=== PATIENT | female | born 1980 | race Caucasian/White ===

== ENCOUNTER 2019-03-08 14:51 | Emergency (ER) | payer OTHER ==
[2019-03-08 15:04] VITALS: BP 127/83
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
== END 2019-03-08 16:15 | disposition home or self-care (01) ==
LOC: UCEAST 14:51
DX: S16.1XXA Strain of muscle, fascia and tendon at neck level, initial encounter (principal); V43.52XA Car driver injured in collision with other type car in traffic accident, initial encounter; Y92.410 Unspecified street and highway as the place of occurrence of the external cause; M25.511 Pain in right shoulder; M50.323 Other cervical disc degeneration at C6-C7 level; E03.9 Hypothyroidism, unspecified; Z88.1 Allergy status to other antibiotic agents; Z88.0 Allergy status to penicillin; Z88.2 Allergy status to sulfonamides; Z91.030 Bee allergy status; F17.210 Nicotine dependence, cigarettes, uncomplicated
CPT/HCPCS: 72125; 99212; G0463

== ENCOUNTER → 2019-03-31 01:03 | Emergency (ER) | payer OTHER ==
[~2019-03-31 01:03] MED LIST: Ibuprofen TAB* 400 MG PO ONE
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
[2019-03-31 02:53] VITALS: BP 119/79
== END | disposition home or self-care (01) ==
LOC: ED 01:03
DX: S30.0XXA Contusion of lower back and pelvis, initial encounter (principal); Y04.8XXA Assault by other bodily force, initial encounter; Y92.009 Unspecified place in unspecified non-institutional (private) residence as the place of occurrence of the external cause; Z88.0 Allergy status to penicillin; Z88.2 Allergy status to sulfonamides; F32.9 Major depressive disorder, single episode, unspecified; F41.9 Anxiety disorder, unspecified; F17.210 Nicotine dependence, cigarettes, uncomplicated
CPT/HCPCS: 72220; 99282; A9270-GY

== ENCOUNTER 2019-07-27 08:52 | Emergency (ER) | payer OTHER ==
--- OUTSIDE RECORDS SUMMARY | 2019-07-27 09:08 | XMS REPORT | Summary of Care ---
:1980 Author Organization [facility] Address [address] [address] Care Team Providers Name Role Phone Lalit Hodges MD Primary Care Provider Reason for Visit Reason Comments Low Back Pain Encounter Details Date Type Department Care Team Description 06/09/2019 Office Visit [facility] - Meghann Maguire, PT Dorsalgia (Primary [facility] [address] Dx) Therapy [address] [place] [address] [address] [phone] [phone] Allergies Active Allergy Reactions Severity Noted Date Comments Bee Anaphylaxis High 10/20/2017 Venlafaxine Other 03/16/2018 Not like Penicillins Anaphylaxis High 10/20/2017 Ceftriaxone Anaphylaxis High 10/20/2017 Sulfa Antibiotics Anaphylaxis High 10/20/2017 documented as of this encounter (statuses as of 06/09/2019) Medications Medication Sig Dispensed Refills Start Date End Date Status Omeprazole Magnesium 20 Take 1 Tab by 0 Active MG Oral Tab EC mouth DAILY. VALacyclovir 1 g Oral Take 2 Tabs by 4 Tab 2 02/28/2019 Active Tab mouth TWICE DAILY. X 1 day naproxen sodium Take 1 Tab by 60 Tab 0 03/04/2019 Active (ANAPROX DS) 550 MG mouth TWO TIMES Oral Tab DAILY WITH MEALS. buPROPion (WELLBUTRIN Take 1 Tab by 60 Tab 2 03/04/2019 Active SR) 150 MG Oral TABLET mouth TWICE SR 12 HR DAILY. nicotine transdermal Place 1 Patch 30 Patch 0 03/04/2019 Active patch-daily (NICODERM) onto skin DAILY. 21 MG/24HR Transdermal PATCH 24 HR diclofenac (VOLTAREN) 1 2 g by Topical 1 Tube 1 03/07/2019 Active % Transdermal Gel route EVERY EIGHT HOURS. Cyclobenzaprine HCl Take 10 mg by 0 Active (FLEXERIL PO) mouth THREE TIMES DAILY NEEDED. gabapentin (NEURONTIN) Take 1 Cap by 90 Cap 0 03/23/2019 Active 300 MG Oral Cap mouth THREE TIMES DAILY. EPINEPHrine 0.3 1 Each by 1 Each 1 03/30/2019 Active MG/0.3ML Injection Injection route Solution Auto-injector NEEDED (anaphlaxis). levothyroxine Take 1 Tab by 30 Tab 5 04/18/2019 Active (SYNTHROID) 75 MCG Oral mouth BEFORE Tab BREAKFAST. documented as of this encounter (statuses as of 06/09/2019) Active Problems Problem Noted Date Tobacco user 12/17/2017 Thyroid nodule Anxiety and depression documented as of this encounter (statuses as of 06/09/2019) Resolved Problems Problem Noted Date Resolved Date Other general symptoms(780.99) 02/01/2006 10/20/2017 documented as of this encounter (statuses as of 06/09/2019) Social History Tobacco Use Types Packs/Day Years Used Date Current Every Day Smoker Cigarettes 0.5 20 Smokeless Tobacco: Never Used Comments: currently weaning from 1 ppd to 0.5 ppd Alcohol Use Drinks/Week oz/Week Comments Yes 3 Cans of beer 3.0 Sex Assigned at Date Recorded Not on file Job Start Date Occupation Industry Not on file Not on file Not on file Travel History Travel Start Travel End No recent travel history available. documented as of this encounter Last Filed Vital Signs Not on filedocumented in this encounter Progress Notes Meghann Maguire, PT - 06/09/2019 11:00 AM EDT [facility] Outpatient Physical Therapy [facility] [address] [place] [id number] Treatment Number: 8 Referring Physician: Lalit Hodges Primary Diagnosis: ICD-9-CM ICD-10-CM 1. Dorsalgia 724.5 M54.9 Time In: 1100 Time Out: 1130 Total Session Minutes: 30 Pain at Start of Care: 7/10 Pain at End of Care: 6/10 Subjective Comments: Low back pain is the worst today. Still has pain everyday. Neck may be a little better but low back is not. Denies pain/numbness/ tingling in the legs today. If squats or bends over gets a little tingling in the legs. Sometimes bends to touch the feet to stretch and cannot returnback to neutral/standing. Heat makes everything feel worse. Unable to lift her 5 year old child intothe car. Has to take tylenol or a muscle relaxer after. Interventions: Therapeutic Exercises (92091) Number of Exercises?: 14 Total Minutes (all Therapeutic Exercise): 30 Exercise #1 Exercise Name: Bird dog Reason for Exercise: Strengthening Location/Body Area: Lumbar Spine Sets/Reps: 10 Exercise #2 Exercise Name: vazquez pose Reason for Exercise: Flexibility Location/Body Area: Lumbar Spine Sets/Reps: 5 Exercise #3 Exercise Name: prone I Reason for Exercise: Strengthening Location/Body Area: Shoulder Sets/Reps: 10 Exercise #4 Exercise Name: cervical retraction Reason for Exercise: Strengthening Location/Body Area: Cervical Spine Sets/Reps: 10 Exercise #5 Exercise Name: supine spinal rotaiton Reason for Exercise: Joint Mobility Location/Body Area: Cervical Spine;Lumbar Spine Sets/Reps: 8 Exercise #6 Exercise Name: Piriformis stretch Reason for Exercise: Flexibility Location/Body Area: Lumbar Spine Sets/Reps: 3x30 seconds Exercise #8 Exercise Name: Cat and camel Reason for Exercise: Joint Mobility Location/Body Area: Lumbar Spine;Thoracic Spine Sets/Reps: 8 Exercise #9 Exercise Name: Prone on elbows Reason for Exercise: Joint Mobility Location/Body Area: Lumbar Spine Sets/Reps: 2x30 seconds Exercise #10 Exercise Name: Bridge Reason for Exercise: Strengthening Location/Body Area: Lumbar Spine Sets/Reps: 10x5 seconds Exercise #11 Exercise Name: hip flexor stretch Reason for Exercise: Flexibility Location/Body Area: Lumbar Spine Sets/Reps: 3x30 seconds trigger points in paraspinals along the whole spine Negative SLR today Hypomobility in lumbar and thoracic spine Assessment: Patient demonstrates lumbar and thoracic hypomobility. Decreased spinal flexion noted which is partially related to paraspinal tightness. Patient also reports ongoing difficulty in lifting, sleeping, prolonged positions. Skilled Physical Therapy services are required to address ongoingfunctional and objective limitations/impairments including decreased lumbar ROM, spine hypomobility,postural and core weakness. Plan for Next Visit: Continue per POC. Advanced HEP to continue with. Is going to follow up with physician as she does not feel improvement. Total UNTIMED Code Treatment Minutes: Total TIMED Code Treatment Minutes: 30 Total Treatment Minutes: 30 Author: Meghann Maguire, PT 06/09/2019 11:31 documented in this encounter Plan of Treatment Date Type Specialty Care Team Description 06/13/2019 Office Visit General Surgery Jina Tinoco MD [address] [address] [phone] 06/23/2019 Office Visit Family Practice Lalit Hodges MD [address] [place] [address] [phone] 08/30/2019 Appointment Radiology 08/30/2019 Appointment Radiology Health Maintenance Due Date Last Done Comments PNEUMOCOCCAL 0-64 YRS (1 of 1 1984 - PPSV23) INFLUENZA VACCINE (#1) 2019 MAMMOGRAM (SCREENING) 08/27/2019 08/27/2018 DEPRESSION SCREENING 03/04/2020 03/04/2019, 03/04/2019 PAP SMEAR 05/25/2021 05/25/2018 LIPID DISORDER SCREENING 02/26/2024 02/25/2019 HPV IMMUNIZATION SERIES Aged Out No longer eligible based on patient's age to complete this topic MENINGOCOCCAL VACCINE IMM Aged Out No longer eligible based on patient's age to complete this topic documented as of this encounter Goals Goal Patient Goal Associated Recent Patient-Stated? Author Type Problems Progress Depression Depression 12 No veronica Hodges (PHQ-9) (03/04/2019 MD Lalit total score < 5 9:42 AM EDT) Note: This is an individualized treatment (depression) goal for Marianna Nguyen: Displayed above is your goal for a depression screening (PHQ-9) score that would indicate good control of your depression. Keep a regular sleep schedule Lifestyle No Lalit Hodges MD Note: This is an individualized lifestyle goal for Marianna Nguyen: Please maintain a regular sleep schedule. This may help with some symptoms of depression. Take all prescribed medications as directed Self-management No Lalit Hodges MD Note: This is an individualized self-management goal for Marianna Nguyen: Please take all prescribed medications as directed. 1. Do not skip doses. If you cannot afford your medications, talk with your doctor. 2. Use a pill reminder system such as a pill box if needed. Your pharmacist can help you with this. 3. Contact your Pharmacy 5 days before your medication runs out. If you cannot take your medications for any reasons, talk with your doctor. 4. Please bring all of your medication bottles and inhalers (or a list of all your medications/inhalers) with you to every visit. Potential barriers to meeting all of your care plan goals will continue to be addressed on an ongoing basis. 

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
[2019-07-27] MEDS ORDERED: Methocarbamol* 100 MG/ML 10 ML VIAL IV ONE (09:20)
[2019-07-27] MEDS ORDERED: Ketorolac INJ* 30 MG/ML 1 ML VIAL IV ONE (09:20)
[2019-07-27] MEDS ORDERED: Dexamethasone IV* 4 MG/ML 1 ML (4 MG) IV SLOW PU ONE (09:20)
[2019-07-27] MEDS ORDERED: Methocarbamol TAB* 500 MG PO ONE (09:39)
[2019-07-27 11:20] VITALS: BP 129/87
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
== END 2019-07-27 11:21 | disposition home or self-care (01) ==
LOC: ED 08:52
DX: S16.1XXA Strain of muscle, fascia and tendon at neck level, initial encounter (principal); W18.09XA Striking against other object with subsequent fall, initial encounter; Y92.009 Unspecified place in unspecified non-institutional (private) residence as the place of occurrence of the external cause; M51.34 Other intervertebral disc degeneration, thoracic region; M47.812 Spondylosis without myelopathy or radiculopathy, cervical region; Z88.0 Allergy status to penicillin; Z88.2 Allergy status to sulfonamides; Z88.1 Allergy status to other antibiotic agents; Z91.030 Bee allergy status; F17.210 Nicotine dependence, cigarettes, uncomplicated
CPT/HCPCS: 72125; 72128; 96374; 96375; 99282; A9270-GY; J1100; J1885; J2800

== ENCOUNTER 2019-08-01 12:18 | Emergency (ER) | payer OTHER ==
[2019-08-01 14:16] LABS: ABS Eosinophils 0.3 10^3/ul (0-0.6); ABS Lymphocytes 3.1 10^3/ul (1.0-4.8); ABS Monocytes 0.9 10^3/ul (0-0.8); ABS Neutrophils 6.6 10^3/ul (1.5-7.7); Eosinophil % 2.7 %; Hematocrit 43 % (35-47); Mean Corpuscular HGB Conc 35 g/dL (31-36); Mean Corpuscular Hemoglobin 34 pg (27-31); Mean Corpuscular Volume 97 fL (80-97); Mean Platelet Volume 9.2 fL (7.4-10.4); Platelet Count 243 10^3/uL (150-450); Red Blood Count 4.46 10^6 /uL (3.70-4.87); Red Cell Distribution Width 13 % (10-15)
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
[2019-08-01 14:31] LABS: ALT 14 U/L (7-52); AST 16 U/L (13-39); Albumin 4.6 g/dL (3.2-5.2); Albumin/Globulin Ratio 1.6 (1-3); Alkaline Phosphatase 48 U/L (34-104); Anion Gap 6 mmol/L (2-11); BUN/Creatinine Ratio 12.8 (8-20); Blood Urea Nitrogen 10 mg/dL (6-24); C Reactive Protein 2.27 mg/L (<8.01); CO2 Carbon Dioxide 27 mmol/L (22-32); Calcium 9.8 mg/dL (8.6-10.3); Chloride 103 mmol/L (101-111); EGFR African American 98.5 (>60); EGFR Non-African American 81.4 (>60); Globulin 2.8 g/dL (2-4); Glucose 95 mg/dL (70-100); Potassium 4.2 mmol/L (3.5-5.0); Sodium 136 mmol/L (135-145); Total Protein 7.4 g/dL (6.4-8.9)
[2019-08-01 14:37] LABS: HCG Pregnancy < 0.60 mIU/mL
[2019-08-01] MEDS ORDERED: Naproxen TAB* 250 MG PO ONE (15:02)
[2019-08-01 15:29] LABS: Magnesium 1.8 mg/dL (1.9-2.7)
[2019-08-01 17:16] VITALS: BP 110/76
[2019-08-01 17:34] LABS: Urine Appearance Clear; Urine Bilirubin Negative (Negative); Urine Blood Negative (Negative); Urine Color Yellow; Urine Glucose Negative (Negative); Urine Ketones Negative (Negative); Urine Nitrite Negative (Negative); Urine Protein Negative (Negative); Urine Specific Gravity 1.015 (1.010-1.030); Urine Urobilinogen Negative (Negative)
== END 2019-08-01 18:11 | disposition home or self-care (01) ==
LOC: ED 12:18
DX: K59.00 Constipation, unspecified (principal); R07.89 Other chest pain; M50.20 Other cervical disc displacement, unspecified cervical region; R51 Headache; R60.0 Localized edema; R11.0 Nausea; R20.2 Paresthesia of skin; R61 Generalized hyperhidrosis; Z88.0 Allergy status to penicillin; Z88.2 Allergy status to sulfonamides; Z88.1 Allergy status to other antibiotic agents; Z91.030 Bee allergy status; Z87.891 Personal history of nicotine dependence
CPT/HCPCS: 36415; 71045; 80053; 81003; 82607; 83605; 83690; 83735; 84425; 84484; 84702; 85025; 86140; 93005; 99282; A9270-GY